=== PATIENT | male | born 1965 | race Two or more races ===

== ENCOUNTER 2019-07-17 13:04 | Inpatient (IN) | payer MEDICAID ==
[~2019-07-17] VITALS: Ht 172.7 cm; Wt 162.8 kg
[2019-07-17] MEDS ORDERED: methylPREDNISolone SOD SUCC 125 MG/2 ML VL IV ONE (13:45)
[2019-07-17] MEDS ORDERED: KETOROLAC TROMETH 30 MG/ML 1ML VIAL IV ONE (13:45)
[2019-07-17 14:33] LABS: Basophils # (auto) 0.1 uL; Basophils % (auto) 0.9 % (0.0-2.0); Eosinophils # (auto) 0.2 uL; Eosinophils % (auto) 1.9 % (0.0-7.0); Hematocrit 40.9 % (41.0-53.0); Hemoglobin 13.5 g/dL (13.5-17.5); Lymphocytes # (auto) 1.4 uL; Lymphocytes % (auto) 13.5 % (10.0-50.0); Mean Corpuscular Hemoglobin 28.4 pg (28.0-32.0); Mean Corpuscular Hgb Conc. 33.1 g/dL (32.0-36.0); Mean Corpuscular Volume 85.9 fL (80.0-100.0); Monocytes # (auto) 0.8 uL; Monocytes % (auto) 7.6 % (0.0-12.0); Neutrophils # (auto) 8.1 uL; Neutrophils % (auto) 76.1 % (37.0-80.0); Platelet Count (auto) 270 10^3/uL (140-450); Red Blood Cells 4.76 10^6/uL (4.5-5.90); Red Cell Distribution Width 18.2 % (11.8-14.3); White Blood Cell 10.7 10^3/uL (4.4-10.8)
[2019-07-17 14:58] LABS: Albumin 2.9 g/dL (3.4-5.0); Calcium 8.4 mg/dL (8.5-10.1); Magnesium 1.8 mg/dL (1.6-2.6); Potassium 3.6 mmol/L (3.5-5.1)
[2019-07-17 15:00] LABS: BUN/Creatinine Ratio 9.1; Uric Acid 11.9 mg/dL (3.5-7.2)
[2019-07-17 15:02] LABS: Bilirubin, Total 0.7 mg/dL (0.2-1.0); Total Protein 7.8 g/dL (6.4-8.2)
[2019-07-17] MEDS ORDERED: traMADol HCL 50 MG TAB PO PRN (16:30)
[2019-07-17] MEDS ORDERED: TEMAZEPAM 15 MG CAP PO PRN (16:30)
[2019-07-17] MEDS ORDERED: PROMETHAZINE HCL 25 MG/ML 1ML IV PRN (16:30)
[2019-07-17] MEDS ORDERED: DEXTROSE (50%) 50ML SYRG IV PRN (16:30)
[2019-07-17] MEDS ORDERED: NITROGLYCERIN 0.4 MG SL TAB SL PRN (17:00)
[2019-07-17] MEDS ORDERED: MORPHINE SULF INJ 2 MG/ML SYRINGE 1ML IV PRN (17:00)
[2019-07-17] MEDS: ACCU-CHEK COMFORT CURVE STRIP VI SCH ×2 (17:03→22:00)
[2019-07-17] MEDS: InsuLIN REG 1unit/0.01ml Soln (100units/ml) SC SCH ×2 (17:07→23:14)
[2019-07-17 20:55] VITALS: BP 129/76
--- NOTE | 2019-07-17 21:32 | NUR ---
OPENING NOTES RECEIVED FROM ED WITH NO SBAR HANDOFF REPORT. PT IS AWAKE AND ALERT AND ORIENTATED X 4 WITH NO S/S OF DISTRESS NOR PAIN. BED IS IN LOWEST POSITION WITH SIDE RAILS UP X 2. BED BRAKES ARE LOCKED AND CALL LIGHT IS WITH IN REACH. WILL CONTINUE TO MONITOR Q1 HR.
[2019-07-17 21:37] VITALS: BP 129/76
--- NOTE | 2019-07-17 21:49 | NUR ---
MED REC UNABLE TO OBTAIN ACCURATE MED REC.
[2019-07-17] MEDS: COLCHICINE 0.6 MG CAP PO SCH (23:08)
[2019-07-18 05:00] VITALS: BP 130/90
[2019-07-18] MEDS: InsuLIN REG 1unit/0.01ml Soln (100units/ml) SC SCH ×4 (06:25→21:20)
[2019-07-18] MEDS: ACCU-CHEK COMFORT CURVE STRIP VI SCH ×4 (06:25→21:20)
--- NOTE | 2019-07-18 07:30 | NUR ---
Opening Shift Note RECEIVED REPORT FROM NOC RN. Assumed care of patient, awake and alert. No S/S of distress/SOB or pain. BED IN LOWEST, LOCKED POSITION WITH SIDERAILS UP x2. Instructed on POC and to call for assist PRN, will continue to monitor for changes Q1hr and PRN.
--- NOTE | 2019-07-18 07:41 | NUR ---
closing notes endorsed care to day shift nurseConor.
[2019-07-18 08:15] VITALS: BP 131/86
[2019-07-18 09:00] VITALS: BP 131/86
[2019-07-18] MEDS: PANTOPRAZOLE 40 MG TAB PO SCH (10:02)
[2019-07-18] MEDS: COLCHICINE 0.6 MG CAP PO SCH ×2 (10:03→21:20)
[2019-07-18] MEDS: methylPREDNISolone SOD SUCC 40 MG/ML VL IV SCH (10:03)
[2019-07-18] MEDS ORDERED: LEVOTHYROXINE SODIUM 112 MCG TAB PO ONE (10:15)
[2019-07-18] MEDS: SOD CHL 0.45% 1,000 ML IV SCH ×2 (10:31→18:52)
[2019-07-18] MEDS ORDERED: ENOXAPARIN SOD 40 MG/0.4 ML SYRINGE SC ONE (11:30)
[2019-07-18 13:00] VITALS: BP 140/80
--- NOTE | 2019-07-18 15:02 | NUR ---
D/C Planning Per consult for homeless resources. Patient was provided information (a list of: names, numbers, and email to multiple agencies/facilities) related to the following social worker to assist patient if needed upon discharge: Government Agencies (to call 211 for assistance), food, health/hospital, homeless shelters, mental health services, laundry, thrift stores, gyms, churches, alcohol/substance abuse, senior citizen services, domestic violence, and legal services. Patient advised that upon discharge he/she will be provided with a sack lunch, clothes and transportation if needed. Pt stated he will be returning to his previous arrangement which is his car and friends. Pt advised he will call [facility] in [place], [place] [address], ) and will be put in the waiting list. Patient verbalized understanding.
--- NOTE | 2019-07-18 16:03 | NUR ---
assessment Patient is a 54 year old male who is alert and oriented. Per patient prior to admission he was homeless. Patient also informed me that he has a daily [facility] caregiver that helps him into the shower, helps with medication management, and cooking. I asked patient where he is getting showers and able to cook if he was homeless. Patient informed me he stays with his caregiver at times and sometimes he stays in his car. Patients PCP is Dr Kee. Sonali FREDERICK1 will be providing patient with resources and offer mcc. Patient verbalized understanding. Addendum: 07/18/19 at 1607 by Sue DICKSON Amended: Links added.
[2019-07-18 16:45] VITALS: BP 145/90
--- NOTE | 2019-07-18 20:00 | NUR ---
OPENING NOTE RECEIVED REPORT FROM DAYSHIFT RN AND ASSUMING ROLE OF CARE OF PATIENT AT THIS TIME. PATIENT SHOWING NO SIGN OF DISTRESS, SHORTNESS OF BREATH, AND PATIENT DENIES ANY PAIN AT THIS TIME. PATIENT EDUCATED ON PLAN OF CARE FOR THE NIGHT AND PATIENT VERBALIZED UNDERSTANDING. BED LOWERED, CALL LIGHT WITHIN REACH, AND PATIENT WILL BE ROUNDED ON EVERY HOUR AND NEEDED.
[2019-07-18 22:00] VITALS: BP 122/83
[2019-07-18] MEDS: ACETAMINOPHEN 500 MG TAB PO PRN (23:36)
[2019-07-19] MEDS: SOD CHL 0.45% 1,000 ML IV SCH ×3 (02:39→22:45)
[2019-07-19 05:00] VITALS: BP 157/100
[2019-07-19] MEDS: LEVOTHYROXINE SODIUM 112 MCG TAB PO SCH (06:19)
[2019-07-19] MEDS: ACCU-CHEK COMFORT CURVE STRIP VI SCH ×4 (06:19→22:00)
[2019-07-19] MEDS: InsuLIN REG 1unit/0.01ml Soln (100units/ml) SC SCH ×4 (06:19→22:46)
[2019-07-19 07:13] LABS: Basophils # (auto) 0 uL; Basophils % (auto) 0.2 % (0.0-2.0); Eosinophils # (auto) 0 uL; Hematocrit 36.6 % (41.0-53.0); Hemoglobin 12.2 g/dL (13.5-17.5); Lymphocytes # (auto) 1.3 uL; Lymphocytes % (auto) 14.3 % (10.0-50.0); Mean Corpuscular Hemoglobin 28.7 pg (28.0-32.0); Mean Corpuscular Hgb Conc. 33.4 g/dL (32.0-36.0); Monocytes # (auto) 0.5 uL; Monocytes % (auto) 6.2 % (0.0-12.0); Neutrophils % (auto) 79.3 % (37.0-80.0); Nucleated Red Blood Cells % 0.1 %; Platelet Count (auto) 271 10^3/uL (140-450); Red Blood Cells 4.25 10^6/uL (4.5-5.90); Red Cell Distribution Width 17.5 % (11.8-14.3); White Blood Cell 8.8 10^3/uL (4.4-10.8)
[2019-07-19 07:16] LABS: Potassium 4.3 mmol/L (3.5-5.1)
[2019-07-19 07:27] LABS: BUN/Creatinine Ratio 23.4; Calcium 8.1 mg/dL (8.5-10.1); Magnesium 2.4 mg/dL (1.6-2.6)
--- NOTE | 2019-07-19 07:40 | NUR ---
Opening Shift Note: Assumed care of patient, patient asleep in bed. No S/S of distress/SOB or pain. Side rails up x2, bed in lowest locked position, call light within reach. Will instruct patient on POC, will continue to monitor for changes Q1hr and PRN.
[2019-07-19 08:00] VITALS: BP 157/97
[2019-07-19] MEDS: PANTOPRAZOLE 40 MG TAB PO SCH (09:39)
[2019-07-19] MEDS: COLCHICINE 0.6 MG CAP PO SCH ×2 (09:39→22:33)
[2019-07-19] MEDS: ENOXAPARIN SOD 40 MG/0.4 ML SYRINGE SC SCH (09:39)
[2019-07-19] MEDS: methylPREDNISolone SOD SUCC 40 MG/ML VL IV SCH (09:39)
[2019-07-19 12:00] VITALS: BP 135/82
--- NOTE | 2019-07-19 14:05 | NUR ---
IV insertion IV access obtained, via clean sterile technique by inserting 20 gauge catheter at right hand after 1 attempt. IV secured properly. No trauma to site. Patient tolerated well.
--- NOTE | 2019-07-19 14:06 | NUR ---
IV removal IV DC'd with clean sterile technique, catheter fully intact. Pressure dressing applied to site. Patient tolerated well.
[2019-07-19] MEDS: ACETAMINOPHEN 500 MG TAB PO PRN (15:30)
--- NOTE | 2019-07-19 15:35 | NUR ---
SPOKE WITH PATIENT ABOUT POSSIBLE SLEEP APNEA. PATIENT RESTATED THAT HE REFUSED BiPAP AT NIGHT, AND IS SCHEDULED FOR AN OUTPATIENT SLEEP STUDY.
[2019-07-19 16:00] VITALS: BP 135/91
--- NOTE | 2019-07-19 19:45 | NUR ---
Opening Shift Note Assumed care of patient, patient sleeping snoring heavily, awakens to verbal stimuli. alert x4. No S/S of distress/SOB or pain. Instructed on POC and to call for assist PRN, will continue to monitor for changes Q1hr and PRN. Call light within reach
--- NOTE | 2019-07-19 20:47 | NUR ---
Rounds Patient awake and alert. No S/S of distress/SOB or pain. Urinal emptied. pale yellow urine. Instructed to call for assistance to get up for bm, last bm yesterday, patient ambulating using walker due to knee pain. Will continue to monitor changes q1hr and PRN. Call light within reach
[2019-07-19 21:52] VITALS: BP 127/90
[2019-07-20] MEDS: SOD CHL 0.45% 1,000 ML IV SCH ×2 (02:15→10:15)
[2019-07-20 04:54] VITALS: BP 130/68
[2019-07-20] MEDS: LEVOTHYROXINE SODIUM 112 MCG TAB PO SCH (06:19)
[2019-07-20] MEDS: ACCU-CHEK COMFORT CURVE STRIP VI SCH ×2 (06:26→11:30)
[2019-07-20] MEDS: InsuLIN REG 1unit/0.01ml Soln (100units/ml) SC SCH ×2 (06:43→12:02)
--- NOTE | 2019-07-20 07:25 | NUR ---
Opening Shift Note: Assumed care of patient, awake and alert. No S/S of distress/SOB or pain. Bed in lowest locked position, side rails up x 2, call light within reach. Instructed on POC and to call for assist PRN, will continue to monitor for changes Q1hr and PRN.
[2019-07-20 09:00] VITALS: BP 142/86
[2019-07-20] MEDS: PANTOPRAZOLE 40 MG TAB PO SCH (09:53)
[2019-07-20] MEDS: methylPREDNISolone SOD SUCC 40 MG/ML VL IV SCH (09:53)
[2019-07-20] MEDS: ENOXAPARIN SOD 40 MG/0.4 ML SYRINGE SC SCH (09:53)
[2019-07-20] MEDS: COLCHICINE 0.6 MG CAP PO SCH (09:53)
[2019-07-20 13:00] VITALS: BP 145/62
--- NOTE | 2019-07-20 14:15 | NUR ---
IV removal IV DC'd with clean sterile technique, catheter fully intact. Pressure dressing applied to site. Patient tolerated well.
--- NOTE | 2019-07-20 15:00 | NUR ---
Weekend or after hours discharge Please follow up with your primary care provider Dr. Kee. We are unable to schedule a follow up appointment at this time due to the office being closed for the weekend. Please call the office on Sunday morning to schedule a follow up appointment.
--- NOTE | 2019-07-20 15:01 | NUR ---
Discharge instructions given as ordered. Encourage to follow up with PMD as instructed. All questions and concerns addressed. Patient verbalized understanding. Medication reconciliation form completed and copy given to patient. IV removed with catheter intact, pressure dressing applied, rahman catheter removed. Telemetry unit returned to ICU. Patient taken to vehicle via wheelchair with all personal belongings, accompanied by staff and family member. No distress noted at time of departure.
== END 2019-07-20 17:02 | disposition home or self-care (01) | DRG 469 ==
LOC: ER 13:04 → TELE 13:05 → TELE-CENTR 21:05
PROVIDERS: ADMIT Internal Medicine; ATTEND Internal Medicine
DX: N17.0 Acute kidney failure with tubular necrosis (principal); E11.22 Type 2 diabetes mellitus with diabetic chronic kidney disease; M10.071 Idiopathic gout, right ankle and foot; E66.01 Morbid (severe) obesity due to excess calories; E03.9 Hypothyroidism, unspecified; I12.9 Hypertensive chronic kidney disease with stage 1 through stage 4 chronic kidney disease, or unspecified chronic kidney disease; N18.9 Chronic kidney disease, unspecified; M19.032 Primary osteoarthritis, left wrist; Z68.43 Body mass index [BMI] 50.0-59.9, adult; Z79.84 Long term (current) use of oral hypoglycemic drugs; Z85.46 Personal history of malignant neoplasm of prostate; Z79.899 Other long term (current) drug therapy
CPT/HCPCS: 36415; 71045; 80048; 80053; 82962; 83735; 83880; 84439; 84550; 85025; 85652; 87081; 93005; 93971; 94761; 96372; 96374; G0378; J1815; J1885

== ENCOUNTER 2020-01-14 10:13 | Inpatient (IN) | payer MEDICAID ==
[~2020-01-14] VITALS: Ht 175.3 cm; Wt 157.1 kg
[2020-01-14 10:47] LABS: Basophils # (auto) 0.1 10 ^3/uL (0-0.2); Basophils % (auto) 0.6 % (0.0-2.0); Eosinophils # (auto) 0 10 ^3/uL (0-0.8); Eosinophils % (auto) 0.3 % (0.0-7.0); Hematocrit 41.6 % (41.0-53.0); Hemoglobin 13.9 g/dL (13.5-17.5); Lymphocytes # (auto) 1.4 10 ^3/uL (0.4-5.4); Lymphocytes % (auto) 12.7 % (10.0-50.0); Mean Corpuscular Hgb Conc. 33.4 g/dL (32.0-36.0); Mean Corpuscular Volume 86.7 fL (80.0-100.0); Monocytes # (auto) 0.8 10 ^3/uL (0-1.3); Monocytes % (auto) 7.7 % (0.0-12.0); Neutrophils # (auto) 8.5 10 ^3/uL (1.6-8.6); Neutrophils % (auto) 78.7 % (37.0-80.0); Nucleated Red Blood Cells % 0.2 %; Platelet Count (auto) 295 10^3/uL (140-450); Red Blood Cells 4.79 10^6/uL (4.5-5.90); Red Cell Distribution Width 17.5 % (11.8-14.3); White Blood Cell 10.8 10^3/uL (4.4-10.8)
[2020-01-14 11:14] LABS: Alanine Aminotransferase 25 U/L (16-61); Albumin 3.2 g/dL (3.4-5.0); Alkaline Phosphatase 88 U/L (45-117); Anion Gap 7 (5-15); BUN/Creatinine Ratio 10.2; Bilirubin, Total 0.9 mg/dL (0.2-1.0); Blood Urea Nitrogen 12 mg/dL (7-18); Calcium 9.1 mg/dL (8.5-10.1); Carbon Dioxide 27 mmol/L (21-32); Chloride 99 mmol/L (98-107); GFR African American 83 mL/min; GFR Non-African American 69 mL/min; Glucose 131 mg/dL (74-106); Potassium 3.7 mmol/L (3.5-5.1); Sodium 133 mmol/L (136-145); Total Protein 9.4 g/dL (6.4-8.2)
[2020-01-14 11:24] LABS: Aspartate Aminotransferase 17 U/L (15-37)
[2020-01-14] MEDS ORDERED: PROMETHAZINE HCL 25 MG/ML 1ML IV ONE (12:00)
[2020-01-14] MEDS ORDERED: HYDROmorphone HCL 2 MG/ML VL IV ONE (12:00)
[2020-01-14] MEDS ORDERED: AZITHROMYCIN 500MG/ 250ML 250 ML IV ONE (12:00)
[2020-01-14] MEDS ORDERED: ALBUTEROL SULF 2.5 MG/0.5ML(0.5%) NEB SOLN NEB ONE (12:00)
[2020-01-14] MEDS ORDERED: IPRATROPIUM BROM 0.5 MG/2.5ML INH SOL NEB ONE (12:00)
[2020-01-14] MEDS ORDERED: NITROGLYCERIN 0.4 MG SL TAB SL PRN (18:45)
[2020-01-14] MEDS ORDERED: ACETAMINOPHEN 500 MG TAB PO PRN (18:45)
[2020-01-14] MEDS ORDERED: ONDANSETRON HCL 4 MG/2 ML VIAL IV PRN (18:45)
[2020-01-14] MEDS ORDERED: MORPHINE SULF INJ 2 MG/ML SYRINGE 1ML IV PRN (18:45)
[2020-01-14] MEDS ORDERED: IPRATROPIUM BROM 0.5 MG/2.5ML INH SOL NEB PRN ×2 (18:45)
[2020-01-14 18:55] VITALS: BP 150/81
[2020-01-14 22:00] VITALS: BP 145/96
[2020-01-15 05:00] VITALS: BP 139/93
[2020-01-15 05:45] LABS: Basophils # (auto) 0.1 10 ^3/uL (0-0.2); Eosinophils # (auto) 0 10 ^3/uL (0-0.8); Eosinophils % (auto) 0.1 % (0.0-7.0); Hematocrit 40.3 % (41.0-53.0); Hemoglobin 13.7 g/dL (13.5-17.5); Lymphocytes # (auto) 1.2 10 ^3/uL (0.4-5.4); Lymphocytes % (auto) 11.4 % (10.0-50.0); Mean Corpuscular Hemoglobin 29.3 pg (28.0-32.0); Mean Corpuscular Hgb Conc. 33.9 g/dL (32.0-36.0); Mean Corpuscular Volume 86.5 fL (80.0-100.0); Monocytes # (auto) 0.8 10 ^3/uL (0-1.3); Monocytes % (auto) 7.3 % (0.0-12.0); Neutrophils # (auto) 8.6 10 ^3/uL (1.6-8.6); Neutrophils % (auto) 80.2 % (37.0-80.0); Platelet Count (auto) 261 10^3/uL (140-450); Red Blood Cells 4.66 10^6/uL (4.5-5.90); Red Cell Distribution Width 17.3 % (11.8-14.3); White Blood Cell 10.8 10^3/uL (4.4-10.8)
[2020-01-15 06:00] LABS: Calcium 8.7 mg/dL (8.5-10.1); Potassium 3.7 mmol/L (3.5-5.1)
[2020-01-15 06:05] LABS: BUN/Creatinine Ratio 12.3
[2020-01-15] MEDS: IPRATROPIUM BROM 0.5 MG/2.5ML INH SOL NEB SCH ×3 (06:19→18:28)
[2020-01-15] MEDS: ALBUTEROL SULF 2.5 MG/0.5ML(0.5%) NEB SOLN NEB SCH ×3 (06:19→18:28)
[2020-01-15 08:56] VITALS: BP 145/100
[2020-01-15] MEDS: FAMOTIDINE 20 MG TAB PO SCH (10:13)
[2020-01-15] MEDS: cefTRIAXone 1GM/50ML D5W 50 ML IV SCH (10:17)
[2020-01-15] MEDS ORDERED: ALLOPURINOL 300 MG TAB PO ONE (11:00)
[2020-01-15] MEDS ORDERED: POTASSIUM CHL 20 Meq TABLET PO ONE (11:00)
[2020-01-15] MEDS ORDERED: FUROSEMIDE 20 MG/2 ML VIAL IV ONE (11:00)
[2020-01-15] MEDS ORDERED: ENOXAPARIN SOD 40 MG/0.4 ML SYRINGE SC ONE (11:15)
[2020-01-15] MEDS: AZITHROMYCIN 500MG/ 250ML 250 ML IV SCH (11:53)
[2020-01-15 13:00] VITALS: BP 157/92
[2020-01-15 13:24] LABS: Urine Bacteria NONE SEEN /hpf (None Seen); Urine Blood TRACE /uL (Negative); Urine Mucus FEW (None Seen); Urine Specific Gravity 1.016 (1.001-1.035); Urine WBC 1 /hpf (0 - 3)
[2020-01-15] MEDS ORDERED: OPTISON 3ml Vial for INJ IV ONE (16:04)
[2020-01-15 17:00] VITALS: BP 111/87
[2020-01-15] MEDS: HYDROcodone-ACET 5/325MG TAB PO PRN (18:33)
[2020-01-15 22:00] VITALS: BP 121/84
[2020-01-15] MEDS: MORPHINE SULF INJ 2 MG/ML SYRINGE 1ML IV PRN (22:23)
[2020-01-16] MEDS: MORPHINE SULF INJ 2 MG/ML SYRINGE 1ML IV PRN ×3 (03:22→20:31)
[2020-01-16 05:00] VITALS: BP 150/87
[2020-01-16] MEDS: IPRATROPIUM BROM 0.5 MG/2.5ML INH SOL NEB SCH ×3 (06:00→18:19)
[2020-01-16] MEDS: ALBUTEROL SULF 2.5 MG/0.5ML(0.5%) NEB SOLN NEB SCH ×3 (06:00→18:19)
[2020-01-16 06:24] LABS: Calcium 8.7 mg/dL (8.5-10.1); Potassium 3.9 mmol/L (3.5-5.1)
[2020-01-16 06:25] LABS: BUN/Creatinine Ratio 11.9
[2020-01-16 09:00] VITALS: BP 136/79
[2020-01-16] MEDS: ALLOPURINOL 300 MG TAB PO SCH (09:37)
[2020-01-16] MEDS: cefTRIAXone 1GM/50ML D5W 50 ML IV SCH (09:37)
[2020-01-16] MEDS: FAMOTIDINE 20 MG TAB PO SCH (09:38)
[2020-01-16] MEDS: ENOXAPARIN SOD 40 MG/0.4 ML SYRINGE SC SCH (09:39)
[2020-01-16] MEDS: HYDROcodone-ACET 5/325MG TAB PO PRN (09:39)
[2020-01-16] MEDS ORDERED: POTASSIUM CHL 20 Meq TABLET PO SCH (10:00)
[2020-01-16] MEDS ORDERED: FUROSEMIDE 20 MG/2 ML VIAL IV SCH (10:00)
[2020-01-16] MEDS ORDERED: LEVOTHYROXINE SODIUM 112 MCG TAB PO ONE (10:45)
[2020-01-16] MEDS: AZITHROMYCIN 500MG/ 250ML 250 ML IV SCH (12:22)
[2020-01-16 13:00] VITALS: BP 129/81
[2020-01-16 16:54] VITALS: BP 155/83
[2020-01-16 22:00] VITALS: BP 134/78
[2020-01-17] VITALS (8 sets, daily range): BP systolic 114–156; BP diastolic 64–100
[2020-01-17] MEDS: MORPHINE SULF INJ 2 MG/ML SYRINGE 1ML IV PRN ×5 (01:56→22:16)
[2020-01-17] MEDS: IPRATROPIUM BROM 0.5 MG/2.5ML INH SOL NEB SCH ×3 (05:58→19:29)
[2020-01-17] MEDS: ALBUTEROL SULF 2.5 MG/0.5ML(0.5%) NEB SOLN NEB SCH ×3 (05:58→19:29)
[2020-01-17 06:33] LABS: Calcium 8.8 mg/dL (8.5-10.1); Potassium 3.5 mmol/L (3.5-5.1)
[2020-01-17 06:36] LABS: BUN/Creatinine Ratio 14.3
[2020-01-17] MEDS: LEVOTHYROXINE SODIUM 112 MCG TAB PO SCH (06:42)
[2020-01-17] MEDS: ALLOPURINOL 300 MG TAB PO SCH (09:22)
[2020-01-17] MEDS: ENOXAPARIN SOD 40 MG/0.4 ML SYRINGE SC SCH (09:22)
[2020-01-17] MEDS: FAMOTIDINE 20 MG TAB PO SCH (09:22)
[2020-01-17] MEDS: cefTRIAXone 1GM/50ML D5W 50 ML IV SCH (09:22)
[2020-01-17] MEDS: AZITHROMYCIN 500MG/ 250ML 250 ML IV SCH (11:00)
[2020-01-17] MEDS: methylPREDNISolone SOD SUCC 125 MG/2 ML VL IV SCH ×2 (12:20→22:14)
[2020-01-17] MEDS ORDERED: ACETYLCYSTEINE 20%(200MG/ML) SOL 4ML NEB SCH (14:00)
[2020-01-17] MEDS: ACETYLCYSTEINE 20%(200MG/ML) SOL 4ML NEB SCH (19:29)
[2020-01-17] MEDS: HYDROcodone-ACET 7.5/325MG TAB PO PRN (20:06)
[2020-01-17] MEDS: ENOXAPARIN SOD 150 MG/1 ML SYRINGE SC SCH (22:14)
[2020-01-18 01:59] VITALS: BP 127/82
[2020-01-18 04:37] VITALS: BP 139/90
[2020-01-18] MEDS: LEVOTHYROXINE SODIUM 112 MCG TAB PO SCH (07:03)
[2020-01-18] MEDS: ALBUTEROL SULF 2.5 MG/0.5ML(0.5%) NEB SOLN NEB SCH ×3 (07:11→18:15)
[2020-01-18] MEDS: ACETYLCYSTEINE 20%(200MG/ML) SOL 4ML NEB SCH ×4 (07:11→18:15)
[2020-01-18] MEDS: IPRATROPIUM BROM 0.5 MG/2.5ML INH SOL NEB SCH ×3 (07:11→18:15)
[2020-01-18 07:22] LABS: Basophils # (auto) 0 10 ^3/uL (0-0.2); Basophils % (auto) 0.4 % (0.0-2.0); Eosinophils # (auto) 0 10 ^3/uL (0-0.8); Hematocrit 38.9 % (41.0-53.0); Hemoglobin 12.8 g/dL (13.5-17.5); Lymphocytes # (auto) 0.7 10 ^3/uL (0.4-5.4); Mean Corpuscular Hemoglobin 28.7 pg (28.0-32.0); Mean Corpuscular Volume 86.9 fL (80.0-100.0); Monocytes # (auto) 0.3 10 ^3/uL (0-1.3); Monocytes % (auto) 2.9 % (0.0-12.0); Neutrophils # (auto) 10.1 10 ^3/uL (1.6-8.6); Neutrophils % (auto) 90.7 % (37.0-80.0); Platelet Count (auto) 317 10^3/uL (140-450); Red Blood Cells 4.48 10^6/uL (4.5-5.90); Red Cell Distribution Width 17.1 % (11.8-14.3); White Blood Cell 11.2 10^3/uL (4.4-10.8)
[2020-01-18 07:31] LABS: INR 1.23 (0.9-1.15); Partial Thromboplastin Time 35.2 sec (23.64-32.05)
[2020-01-18 07:35] LABS: Albumin 2.1 g/dL (3.4-5.0); Calcium 9.1 mg/dL (8.5-10.1); Potassium 4.3 mmol/L (3.5-5.1)
[2020-01-18 07:38] LABS: BUN/Creatinine Ratio 22.5; Bilirubin, Total 0.4 mg/dL (0.2-1.0); Total Protein 9.3 g/dL (6.4-8.2)
[2020-01-18] MEDS: ALLOPURINOL 300 MG TAB PO SCH (08:50)
[2020-01-18] MEDS: cefTRIAXone 1GM/50ML D5W 50 ML IV SCH (08:50)
[2020-01-18] MEDS: ENOXAPARIN SOD 150 MG/1 ML SYRINGE SC SCH ×2 (08:50→21:46)
[2020-01-18] MEDS: FAMOTIDINE 20 MG TAB PO SCH (08:50)
[2020-01-18] MEDS: methylPREDNISolone SOD SUCC 125 MG/2 ML VL IV SCH ×2 (08:51→21:46)
[2020-01-18] MEDS: MORPHINE SULF INJ 2 MG/ML SYRINGE 1ML IV PRN ×2 (08:51→20:37)
[2020-01-18 09:58] VITALS: BP_SYST 107; BP_SYST 138; BP_DIAS 56; BP_DIAS 82
[2020-01-18] MEDS: AZITHROMYCIN 500MG/ 250ML 250 ML IV SCH (10:38)
[2020-01-18] MEDS ORDERED: COLCHICINE 0.6 MG CAP PO ONE (10:45)
[2020-01-18 13:00] VITALS: BP 121/66
[2020-01-18 16:26] VITALS: BP 128/72
[2020-01-18 22:00] VITALS: BP 138/80
[2020-01-19] MEDS: IPRATROPIUM BROM 0.5 MG/2.5ML INH SOL NEB SCH ×4 (00:49→18:26)
[2020-01-19] MEDS: ALBUTEROL SULF 2.5 MG/0.5ML(0.5%) NEB SOLN NEB SCH ×4 (00:49→18:26)
[2020-01-19] MEDS: ACETYLCYSTEINE 20%(200MG/ML) SOL 4ML NEB SCH ×2 (00:49→07:07)
[2020-01-19] MEDS: MORPHINE SULF INJ 2 MG/ML SYRINGE 1ML IV PRN ×4 (02:12→20:21)
[2020-01-19] MEDS: HYDROcodone-ACET 7.5/325MG TAB PO PRN ×2 (04:08→16:12)
[2020-01-19 05:00] VITALS: BP 119/80
[2020-01-19 06:08] LABS: Hematocrit 36.3 % (41.0-53.0); Hemoglobin 12.3 g/dL (13.5-17.5); Mean Corpuscular Hemoglobin 29.5 pg (28.0-32.0); Mean Corpuscular Hgb Conc. 33.8 g/dL (32.0-36.0); Mean Corpuscular Volume 87.1 fL (80.0-100.0); Platelet Count (auto) 323 10^3/uL (140-450); Red Blood Cells 4.16 10^6/uL (4.5-5.90); Red Cell Distribution Width 17.3 % (11.8-14.3); White Blood Cell 9.8 10^3/uL (4.4-10.8)
[2020-01-19 06:13] LABS: Band Neutrophils % (manual) 0; Basophils % (manual) 0 (0.0-2.0); Blast Cells 0; Eosinophils % (manual) 0 (0-7); Metamyelocytes % 0; Myelocytes % 0; Promyelocytes % 0; Reactive Lymphocytes 0
[2020-01-19] MEDS: LEVOTHYROXINE SODIUM 112 MCG TAB PO SCH (06:36)
[2020-01-19 06:56] LABS: Hepatitis B Surface Antibody Negative
[2020-01-19 07:26] LABS: Hepatitis A Total Antibody Negative
[2020-01-19 07:27] LABS: Lymphocytes % (manual) 12 (10.0-50.0); Monocytes % (manual) 2 (0-12)
[2020-01-19 09:00] VITALS: BP 111/84
[2020-01-19] MEDS: cefTRIAXone 1GM/50ML D5W 50 ML IV SCH (10:01)
[2020-01-19] MEDS: methylPREDNISolone SOD SUCC 125 MG/2 ML VL IV SCH (10:02)
[2020-01-19] MEDS: FAMOTIDINE 20 MG TAB PO SCH (10:02)
[2020-01-19] MEDS: COLCHICINE 0.6 MG CAP PO SCH (10:02)
[2020-01-19] MEDS: ALLOPURINOL 300 MG TAB PO SCH (10:02)
[2020-01-19] MEDS: AZITHROMYCIN 500MG/ 250ML 250 ML IV SCH (10:02)
[2020-01-19] MEDS: ENOXAPARIN SOD 150 MG/1 ML SYRINGE SC SCH ×2 (10:02→23:35)
[2020-01-19 10:42] LABS: Hepatitis B Core Total AB Negative; Hepatitis C Antibody Negative (Negative)
[2020-01-19 13:00] VITALS: BP 110/71
[2020-01-19 16:37] VITALS: BP 129/82
[2020-01-19 22:00] VITALS: BP 134/76
[2020-01-19] MEDS: CIPROFLOXACIN 0.3%OPTH(EYE) SOL 5ML EACHEYE SCH (22:00)
[2020-01-19] MEDS ORDERED: KETOROLAC TROMETH 15 mg/ml 1ML VL IV ONE (22:00)
[2020-01-20] MEDS ORDERED: TEMAZEPAM 15 MG CAP PO ONE
[2020-01-20 05:00] VITALS: BP 147/93
[2020-01-20] MEDS: MORPHINE SULF INJ 2 MG/ML SYRINGE 1ML IV PRN ×3 (05:29→20:47)
[2020-01-20] MEDS: CIPROFLOXACIN 0.3%OPTH(EYE) SOL 5ML EACHEYE SCH ×3 (05:31→22:25)
[2020-01-20] MEDS: ALBUTEROL SULF 2.5 MG/0.5ML(0.5%) NEB SOLN NEB SCH ×3 (06:20→18:38)
[2020-01-20] MEDS: IPRATROPIUM BROM 0.5 MG/2.5ML INH SOL NEB SCH ×3 (06:20→18:38)
[2020-01-20] MEDS: LEVOTHYROXINE SODIUM 112 MCG TAB PO SCH (06:41)
[2020-01-20 06:59] LABS: Hepatitis B Surface Antigen Negative (Negative)
[2020-01-20] MEDS: cefTRIAXone 1GM/50ML D5W 50 ML IV SCH (08:59)
[2020-01-20 09:00] VITALS: BP 148/80
[2020-01-20] MEDS: COLCHICINE 0.6 MG CAP PO SCH (09:45)
[2020-01-20] MEDS: AZITHROMYCIN 250 MG TAB PO SCH (09:45)
[2020-01-20] MEDS: predniSONE 20 MG TAB PO SCH (09:45)
[2020-01-20] MEDS: FAMOTIDINE 20 MG TAB PO SCH (09:46)
[2020-01-20] MEDS: ENOXAPARIN SOD 150 MG/1 ML SYRINGE SC SCH (09:47)
[2020-01-20 13:00] VITALS: BP 127/98
[2020-01-20 16:44] VITALS: BP 145/92
[2020-01-20 22:00] VITALS: BP 105/55
[2020-01-20] MEDS: HYDROcodone-ACET 7.5/325MG TAB PO PRN (22:50)
[2020-01-21] VITALS (7 sets, daily range): BP systolic 122–146; BP diastolic 65–74
[2020-01-21] MEDS: MORPHINE SULF INJ 2 MG/ML SYRINGE 1ML IV PRN ×2 (05:33→21:52)
[2020-01-21] MEDS: CIPROFLOXACIN 0.3%OPTH(EYE) SOL 5ML EACHEYE SCH ×4 (05:33→21:51)
[2020-01-21] MEDS: LEVOTHYROXINE SODIUM 112 MCG TAB PO SCH (06:45)
[2020-01-21] MEDS: ALBUTEROL SULF 2.5 MG/0.5ML(0.5%) NEB SOLN NEB SCH ×3 (06:55→19:28)
[2020-01-21] MEDS: IPRATROPIUM BROM 0.5 MG/2.5ML INH SOL NEB SCH ×3 (06:55→19:29)
[2020-01-21] MEDS: cefTRIAXone 1GM/50ML D5W 50 ML IV SCH (09:54)
[2020-01-21] MEDS: ASPirin 81 mg TAB PO SCH (09:55)
[2020-01-21] MEDS: COLCHICINE 0.6 MG CAP PO SCH ×2 (09:56→21:51)
[2020-01-21] MEDS: predniSONE 20 MG TAB PO SCH (09:56)
[2020-01-21] MEDS: FAMOTIDINE 20 MG TAB PO SCH (09:56)
[2020-01-21] MEDS: AZITHROMYCIN 250 MG TAB PO SCH (09:56)
[2020-01-21] MEDS ORDERED: KETOROLAC TROMETH 15 mg/ml 1ML VL IV ONE (10:15)
[2020-01-21] MEDS ORDERED: methylPREDNISolone SOD SUCC 125 MG/2 ML VL IV ONE (10:15)
[2020-01-22] VITALS (7 sets, daily range): BP systolic 60–123; BP diastolic 57–73
[2020-01-22] MEDS: IPRATROPIUM BROM 0.5 MG/2.5ML INH SOL NEB SCH ×3 (06:01→18:54)
[2020-01-22] MEDS: ALBUTEROL SULF 2.5 MG/0.5ML(0.5%) NEB SOLN NEB SCH ×3 (06:01→18:53)
[2020-01-22] MEDS: LEVOTHYROXINE SODIUM 112 MCG TAB PO SCH (06:19)
[2020-01-22] MEDS: CIPROFLOXACIN 0.3%OPTH(EYE) SOL 5ML EACHEYE SCH ×4 (06:19→21:51)
[2020-01-22] MEDS: cefTRIAXone 1GM/50ML D5W 50 ML IV SCH (09:10)
[2020-01-22] MEDS: COLCHICINE 0.6 MG CAP PO SCH (09:11)
[2020-01-22] MEDS: predniSONE 20 MG TAB PO SCH (09:11)
[2020-01-22] MEDS: AZITHROMYCIN 250 MG TAB PO SCH (09:11)
[2020-01-22] MEDS: ASPirin 81 mg TAB PO SCH (09:11)
[2020-01-22] MEDS: FAMOTIDINE 20 MG TAB PO SCH (09:12)
[2020-01-22] MEDS ORDERED: ALLOPURINOL 300 MG TAB PO ONE (11:15)
[2020-01-22] MEDS ORDERED: KETOROLAC TROMETH 15 mg/ml 1ML VL IV ONE (11:30)
[2020-01-22] MEDS: HYDROcodone-ACET 7.5/325MG TAB PO PRN (21:53)
[2020-01-23 05:23] LABS: Hematocrit 43.1 % (41.0-53.0); Hemoglobin 14.2 g/dL (13.5-17.5); Mean Corpuscular Volume 87.8 fL (80.0-100.0); Platelet Count (auto) 315 10^3/uL (140-450); Red Blood Cells 4.91 10^6/uL (4.5-5.90); White Blood Cell 8.8 10^3/uL (4.4-10.8)
[2020-01-23 05:36] LABS: Basophils % (manual) 0 (0.0-2.0); Blast Cells 0; Eosinophils % (manual) 0 (0-7); Myelocytes % 0; Promyelocytes % 0; Reactive Lymphocytes 0
[2020-01-23 05:44] VITALS: BP 122/63
[2020-01-23 05:44] LABS: Potassium 4.3 mmol/L (3.5-5.1)
[2020-01-23 05:49] LABS: BUN/Creatinine Ratio 40.7; Calcium 7.7 mg/dL (8.5-10.1)
[2020-01-23] MEDS: IPRATROPIUM BROM 0.5 MG/2.5ML INH SOL NEB SCH ×3 (06:14→18:14)
[2020-01-23] MEDS: ALBUTEROL SULF 2.5 MG/0.5ML(0.5%) NEB SOLN NEB SCH ×3 (06:14→18:14)
[2020-01-23] MEDS: LEVOTHYROXINE SODIUM 112 MCG TAB PO SCH (06:30)
[2020-01-23] MEDS: CIPROFLOXACIN 0.3%OPTH(EYE) SOL 5ML EACHEYE SCH ×4 (06:30→21:27)
[2020-01-23 07:16] LABS: Band Neutrophils % (manual) 2; Lymphocytes % (manual) 14 (10.0-50.0); Metamyelocytes % 2; Monocytes % (manual) 8 (0-12)
[2020-01-23 09:00] VITALS: BP 162/79
[2020-01-23] MEDS ORDERED: ALLOPURINOL 300 MG TAB PO SCH (10:00)
[2020-01-23] MEDS: predniSONE 20 MG TAB PO SCH (10:13)
[2020-01-23] MEDS: FLORASTOR (S. BOULARDII) 250 MG CAP PO SCH (10:13)
[2020-01-23] MEDS: FAMOTIDINE 20 MG TAB PO SCH (10:13)
[2020-01-23] MEDS: ASPirin 81 mg TAB PO SCH (10:13)
[2020-01-23] MEDS: AZITHROMYCIN 250 MG TAB PO SCH (10:13)
[2020-01-23] MEDS: HYDROcodone-ACET 7.5/325MG TAB PO PRN ×2 (10:14→21:43)
[2020-01-23] MEDS ORDERED: LEVOTHYROXINE SODIUM 100 MCG/5 ML INJ IV ONE (11:30)
[2020-01-23] MEDS ORDERED: SODIUM CHLORIDE 0.9% 1,000 ML IV ONE (11:30)
[2020-01-23 13:00] VITALS: BP 150/76
[2020-01-23 17:00] VITALS: BP 162/104
[2020-01-23 22:00] VITALS: BP 127/72
[2020-01-24 05:04] VITALS: BP 131/76
[2020-01-24] MEDS: CIPROFLOXACIN 0.3%OPTH(EYE) SOL 5ML EACHEYE SCH ×2 (05:55→12:00)
[2020-01-24] MEDS: ALBUTEROL SULF 2.5 MG/0.5ML(0.5%) NEB SOLN NEB SCH ×2 (06:18→11:29)
[2020-01-24] MEDS: IPRATROPIUM BROM 0.5 MG/2.5ML INH SOL NEB SCH ×2 (06:18→11:29)
[2020-01-24 07:33] LABS: Calcium 7.8 mg/dL (8.5-10.1); Potassium 3.9 mmol/L (3.5-5.1)
[2020-01-24 07:35] LABS: BUN/Creatinine Ratio 32.7
[2020-01-24 09:00] VITALS: BP 121/64
[2020-01-24] MEDS ORDERED: predniSONE 20 MG TAB PO ONE (10:00)
[2020-01-24] MEDS ORDERED: LEVOTHYROXINE SODIUM 100 MCG/5 ML INJ IV SCH (10:00)
[2020-01-24] MEDS: ASPirin 81 mg TAB PO SCH (10:04)
[2020-01-24] MEDS: FLORASTOR (S. BOULARDII) 250 MG CAP PO SCH (10:04)
[2020-01-24] MEDS: FAMOTIDINE 20 MG TAB PO SCH (10:04)
[2020-01-24] MEDS: AZITHROMYCIN 250 MG TAB PO SCH (10:05)
[2020-01-24] MEDS: HYDROcodone-ACET 7.5/325MG TAB PO PRN (10:09)
[2020-01-24 12:48] VITALS: BP 121/71
[2020-01-24 13:29] VITALS: BP 121/71
[2020-01-24 14:25] VITALS: BP 121/71
[2020-01-25] MEDS ORDERED: predniSONE 20 MG TAB PO ONE (10:00)
[2020-01-26] MEDS ORDERED: predniSONE 5 MG TAB PO ONE (10:00)
[2020-01-27] MEDS ORDERED: predniSONE 5 MG TAB PO ONE (10:00)
== END 2020-01-24 15:35 | disposition home or self-care (01) | DRG 133 ==
LOC: EDBD 10:13 → ER 10:13 → OVERFLOW 10:14 → CENTRAL 20:11
PROVIDERS: ADMIT Nurse Practitioner Acute Care; ATTEND Internal Medicine
PROC: 5A09357 Assistance with Respiratory Ventilation, Less than 24 Consecutive Hours, Continuous Positive Airway Pressure (ICD-10-PCS; principal; 2020-01-19)
DX: J96.00 Acute respiratory failure, unspecified whether with hypoxia or hypercapnia (principal); N17.0 Acute kidney failure with tubular necrosis; I50.41 Acute combined systolic (congestive) and diastolic (congestive) heart failure; J18.9 Pneumonia, unspecified organism; I13.0 Hypertensive heart and chronic kidney disease with heart failure and stage 1 through stage 4 chronic kidney disease, or unspecified chronic kidney disease; E86.0 Dehydration; I15.2 Hypertension secondary to endocrine disorders; E66.01 Morbid (severe) obesity due to excess calories; G47.33 Obstructive sleep apnea (adult) (pediatric); G89.29 Other chronic pain; R73.9 Hyperglycemia, unspecified; E03.9 Hypothyroidism, unspecified; M10.041 Idiopathic gout, right hand; N18.9 Chronic kidney disease, unspecified; E44.1 Mild protein-calorie malnutrition; F32.9 Major depressive disorder, single episode, unspecified; J44.0 Chronic obstructive pulmonary disease with (acute) lower respiratory infection; Z79.82 Long term (current) use of aspirin; Z91.14 Patient's other noncompliance with medication regimen; Z91.19 Patient's noncompliance with other medical treatment and regimen; Z79.899 Other long term (current) drug therapy; Z68.43 Body mass index [BMI] 50.0-59.9, adult; S63.104A Unspecified dislocation of right thumb, initial encounter; X58.XXXA Exposure to other specified factors, initial encounter; Y93.89 Activity, other specified; Y92.89 Other specified places as the place of occurrence of the external cause; Y99.8 Other external cause status
CPT/HCPCS: 36415; 36600; 70490; 71045; 73100; 73110; 73120; 80048; 80053; 80061; 81001; 82805; 83036; 83735; 83880; 84439; 84443; 84484; 84550; 85007; 85025; 85027; 85379; 85610; 85730; 86703; 86704; 86706; 86708; 86803; 87340; 87493; 87804; 93005; 93306; 93970; 94640; 94660; 96365; 96366; 96375; 97110; 97163; 97530; G0378; J0696; J2405; J3490; Q9956

== ENCOUNTER 2021-12-13 16:24 | Inpatient (IN) | payer MEDICAID ==
[~2021-12-13] VITALS: Ht 172.7 cm; Wt 147.0 kg
[2021-12-13 18:25] LABS: Basophils # (auto) 0.1 10 ^3/uL (0-0.2); Basophils % (auto) 1.3 % (0.0-2.0); Eosinophils # (auto) 0.2 10 ^3/uL (0-0.8); Eosinophils % (auto) 2.3 % (0.0-7.0); Hematocrit 42.5 % (41.0-53.0); Hemoglobin 14.3 g/dL (13.5-17.5); Mean Corpuscular Hemoglobin 28.8 pg (28.0-32.0); Mean Corpuscular Hgb Conc. 33.7 g/dL (32.0-36.0); Mean Corpuscular Volume 85.4 fL (80.0-100.0); Monocytes # (auto) 0.6 10 ^3/uL (0-1.3); Monocytes % (auto) 5.9 % (0.0-12.0); Neutrophils # (auto) 6.7 10 ^3/uL (1.6-8.6); Neutrophils % (auto) 69.5 % (37.0-80.0); Nucleated Red Blood Cells % 0.2 %; Red Blood Cells 4.97 10^6/uL (4.5-5.90); White Blood Cell 9.7 10^3/uL (4.4-10.8)
[2021-12-13 18:43] LABS: Albumin 3.6 g/dL (3.4-5.0)
[2021-12-13 18:50] LABS: BUN/Creatinine Ratio 10.4; Bilirubin, Total 0.4 mg/dL (0.2-1.0); Total Protein 9.2 g/dL (6.4-8.2)
[2021-12-13] MEDS ORDERED: HYDROcodone-ACET 5/325MG TAB PO ONE (20:45)
[2021-12-13] MEDS ORDERED: ACETAMINOPHEN 325 MG TAB PO PRN (22:15)
[2021-12-13] MEDS ORDERED: ATORVASTATIN 20 MG TAB PO ONE (22:15)
[2021-12-13] MEDS ORDERED: cloNIDine HCL 0.1 MG TAB PO PRN (22:15)
[2021-12-13] MEDS ORDERED: ONDANSETRON HCL 4 MG/2 ML VIAL IV PRN (22:15)
[2021-12-14] VITALS (8 sets, daily range): BP systolic 112–151; BP diastolic 69–101
[2021-12-14] MEDS: HYDROcodone-ACET 5/325MG TAB PO PRN ×4 (01:09→21:09)
[2021-12-14] MEDS: TEMAZEPAM 15 MG CAP PO PRN (01:09)
[2021-12-14] MEDS ORDERED: INDO50CA82 PO (01:39)
[2021-12-14] MEDS ORDERED: HYDR-4902 PO (01:39)
[2021-12-14] MEDS: GABAPENTIN 300 MG CAP PO SCH ×3 (06:36→22:00)
[2021-12-14 07:32] LABS: Basophils # (auto) 0.1 10 ^3/uL (0-0.2); Basophils % (auto) 0.7 % (0.0-2.0); Eosinophils # (auto) 0.3 10 ^3/uL (0-0.8); Eosinophils % (auto) 3.7 % (0.0-7.0); Hematocrit 37.6 % (41.0-53.0); Hemoglobin 12.5 g/dL (13.5-17.5); Lymphocytes # (auto) 1.9 10 ^3/uL (0.4-5.4); Lymphocytes % (auto) 27.9 % (10.0-50.0); Mean Corpuscular Hemoglobin 28.7 pg (28.0-32.0); Mean Corpuscular Hgb Conc. 33.2 g/dL (32.0-36.0); Mean Corpuscular Volume 86.3 fL (80.0-100.0); Monocytes # (auto) 0.6 10 ^3/uL (0-1.3); Monocytes % (auto) 8.6 % (0.0-12.0); Neutrophils # (auto) 4.1 10 ^3/uL (1.6-8.6); Neutrophils % (auto) 59.1 % (37.0-80.0); Nucleated Red Blood Cells % 0.1 %; Red Blood Cells 4.35 10^6/uL (4.5-5.90); Red Cell Distribution Width 16.1 % (11.8-14.3); White Blood Cell 6.9 10^3/uL (4.4-10.8)
[2021-12-14 07:41] LABS: Potassium 3.7 mmol/L (3.5-5.1)
[2021-12-14 07:45] LABS: BUN/Creatinine Ratio 12.4; Calcium 8.7 mg/dL (8.5-10.1)
[2021-12-14] MEDS: LISINOPRIL 10 MG TAB PO SCH (09:46)
[2021-12-14] MEDS: PANTOPRAZOLE 40 MG TAB PO SCH (09:47)
[2021-12-14] MEDS: ASPirin 81 mg TAB PO SCH (09:47)
[2021-12-14] MEDS: ENOXAPARIN SOD 40 MG/0.4 ML SYRINGE SC SCH (09:47)
[2021-12-14] MEDS: KETOROLAC TROMETH 30 MG/ML 1ML VIAL IV PRN (17:14)
[2021-12-14] MEDS: ATORVASTATIN 20 MG TAB PO SCH (22:00)
[2021-12-15] MEDS: KETOROLAC TROMETH 30 MG/ML 1ML VIAL IV PRN ×3 (04:11→22:25)
[2021-12-15 05:00] VITALS: BP 89/48
[2021-12-15] MEDS: GABAPENTIN 300 MG CAP PO SCH ×3 (06:07→22:25)
[2021-12-15 06:48] LABS: Urine Bacteria NONE SEEN /hpf (None Seen); Urine Blood Negative /uL (Negative); Urine Specific Gravity 1.026 (1.001-1.035); Urine WBC 1 /hpf (0 - 3)
[2021-12-15 09:00] VITALS: BP 96/70
[2021-12-15] MEDS: ASPirin 81 mg TAB PO SCH (10:02)
[2021-12-15] MEDS: PANTOPRAZOLE 40 MG TAB PO SCH (10:03)
[2021-12-15] MEDS: LISINOPRIL 10 MG TAB PO SCH (10:04)
[2021-12-15] MEDS: ENOXAPARIN SOD 40 MG/0.4 ML SYRINGE SC SCH (10:22)
[2021-12-15 10:49] LABS: Amphetamine Screen, Urine NEGATIVE (NEGATIVE); Barbiturate Scree,Urine NEGATIVE (NEGATIVE); Benzodiazephine Screen, Urine NEGATIVE (NEGATIVE); Cocaine Screen, Urine NEGATIVE (NEGATIVE); Opiate Scree,Urine POSITIVE (NEGATIVE); Phencyclidine Screen, Urine NEGATIVE (NEGATIVE)
[2021-12-15 11:05] LABS: Cannabinoid Screen, Urine NEGATIVE (NEGATIVE)
[2021-12-15 12:44] LABS: Cholesterol 182 mg/dL (< 200); HDL Cholesterol 30 mg/dL (40-59); LDL Cholesterol 120 mg/dL (< 100); Triglycerides 219 mg/dL (< 150)
[2021-12-15 13:00] VITALS: BP 116/65
[2021-12-15 17:01] VITALS: BP 116/75
[2021-12-15 20:00] VITALS: BP 123/70
[2021-12-15 22:00] VITALS: BP 123/70
[2021-12-15] MEDS: TEMAZEPAM 15 MG CAP PO PRN (22:25)
[2021-12-15] MEDS: ATORVASTATIN 20 MG TAB PO SCH (22:25)
[2021-12-16] VITALS (8 sets, daily range): BP systolic 114–155; BP diastolic 68–85
[2021-12-16] MEDS: GABAPENTIN 300 MG CAP PO SCH ×3 (05:46→14:30)
[2021-12-16] MEDS: KETOROLAC TROMETH 30 MG/ML 1ML VIAL IV PRN ×2 (05:47→14:32)
[2021-12-16] MEDS: ASPirin 81 mg TAB PO SCH (09:16)
[2021-12-16] MEDS: LISINOPRIL 10 MG TAB PO SCH (09:17)
[2021-12-16] MEDS: PANTOPRAZOLE 40 MG TAB PO SCH (09:17)
[2021-12-16] MEDS: ENOXAPARIN SOD 40 MG/0.4 ML SYRINGE SC SCH (09:17)
[2021-12-16] MEDS: HYDROcodone-ACET 5/325MG TAB PO PRN ×2 (09:17→20:30)
[2021-12-16] MEDS ORDERED: ATORVASTATIN 20 MG TAB PO ONE (10:15)
[2021-12-16] MEDS: TEMAZEPAM 15 MG CAP PO PRN (21:00)
[2021-12-17 05:00] VITALS: BP 107/70
[2021-12-17] MEDS: GABAPENTIN 300 MG CAP PO SCH ×3 (05:38→23:08)
[2021-12-17 09:00] VITALS: BP 154/94
[2021-12-17] MEDS: ASPirin 81 mg TAB PO SCH (09:50)
[2021-12-17] MEDS: LISINOPRIL 10 MG TAB PO SCH (09:50)
[2021-12-17] MEDS: PANTOPRAZOLE 40 MG TAB PO SCH (09:50)
[2021-12-17] MEDS: HYDROcodone-ACET 5/325MG TAB PO PRN (09:51)
[2021-12-17] MEDS: ENOXAPARIN SOD 40 MG/0.4 ML SYRINGE SC SCH (09:51)
[2021-12-17 13:00] VITALS: BP 145/91
[2021-12-17] MEDS: KETOROLAC TROMETH 30 MG/ML 1ML VIAL IV PRN ×2 (16:29→23:09)
[2021-12-17 17:00] VITALS: BP 147/80
[2021-12-17 20:00] VITALS: BP 130/73
[2021-12-17 22:00] VITALS: BP 130/73
[2021-12-17] MEDS: ATORVASTATIN 20 MG TAB PO SCH (23:07)
[2021-12-18 05:00] VITALS: BP 133/70
[2021-12-18] MEDS: HYDROcodone-ACET 5/325MG TAB PO PRN ×4 (06:07→07:14)
[2021-12-18] MEDS: GABAPENTIN 300 MG CAP PO SCH ×3 (07:13→21:05)
[2021-12-18] MEDS ORDERED: LISI20TA28 PO (09:31)
[2021-12-18] MEDS ORDERED: ASPI-498 OR (09:31)
[2021-12-18] MEDS ORDERED: ATO40T PO (09:31)
[2021-12-18] MEDS ORDERED: INDOMETHACIN 25 MG CAP PO ONE (10:00)
[2021-12-18] MEDS: PANTOPRAZOLE 40 MG TAB PO SCH (11:12)
[2021-12-18] MEDS: ASPirin 81 mg TAB PO SCH (11:13)
[2021-12-18] MEDS: LISINOPRIL 10 MG TAB PO SCH (11:14)
[2021-12-18] MEDS: ENOXAPARIN SOD 40 MG/0.4 ML SYRINGE SC SCH (11:15)
[2021-12-18] MEDS: KETOROLAC TROMETH 30 MG/ML 1ML VIAL IV PRN ×2 (13:30→21:04)
[2021-12-18 17:24] VITALS: BP 128/70
[2021-12-18 20:00] VITALS: BP 134/89
[2021-12-18] MEDS: ATORVASTATIN 20 MG TAB PO SCH (21:05)
[2021-12-18] MEDS: TEMAZEPAM 15 MG CAP PO PRN (21:20)
[2021-12-18 22:00] VITALS: BP 137/68
[2021-12-19] MEDS: KETOROLAC TROMETH 30 MG/ML 1ML VIAL IV PRN (03:35)
[2021-12-19] MEDS: HYDROcodone-ACET 5/325MG TAB PO PRN (03:37)
[2021-12-19 05:00] VITALS: BP 123/81
[2021-12-19] MEDS: GABAPENTIN 300 MG CAP PO SCH (05:03)
[2021-12-19 08:00] VITALS: BP 120/70
[2021-12-19 09:30] VITALS: BP 116/82
[2021-12-19] MEDS: ENOXAPARIN SOD 40 MG/0.4 ML SYRINGE SC SCH (09:40)
[2021-12-19] MEDS: ASPirin 81 mg TAB PO SCH (09:40)
[2021-12-19] MEDS: PANTOPRAZOLE 40 MG TAB PO SCH (09:40)
[2021-12-19] MEDS: LISINOPRIL 10 MG TAB PO SCH (09:41)
[2021-12-19 09:58] LABS: Folate (Folic Acid) 9.57 ng/mL (5.38-24)
== END 2021-12-19 12:00 | disposition home or self-care (01) | DRG 47 ==
LOC: ER 16:40 → OVERFLOW 22:05 → CENTRAL 12-14 00:16
PROVIDERS: ADMIT Nurse Practitioner; ATTEND Family Medicine
DX: G45.9 Transient cerebral ischemic attack, unspecified (principal); E66.01 Morbid (severe) obesity due to excess calories; E78.00 Pure hypercholesterolemia, unspecified; G62.9 Polyneuropathy, unspecified; M54.12 Radiculopathy, cervical region; G47.10 Hypersomnia, unspecified; N18.9 Chronic kidney disease, unspecified; M10.9 Gout, unspecified; F12.10 Cannabis abuse, uncomplicated; Z20.822 Contact with and (suspected) exposure to COVID-19; R53.1 Weakness; I12.9 Hypertensive chronic kidney disease with stage 1 through stage 4 chronic kidney disease, or unspecified chronic kidney disease; Z68.42 Body mass index [BMI] 45.0-49.9, adult; Z71.51 Drug abuse counseling and surveillance of drug abuser; Z79.82 Long term (current) use of aspirin; Z79.899 Other long term (current) drug therapy; Z80.42 Family history of malignant neoplasm of prostate; Z82.49 Family history of ischemic heart disease and other diseases of the circulatory system; Z83.3 Family history of diabetes mellitus; Z89.429 Acquired absence of other toe(s), unspecified side
CPT/HCPCS: 36415; 70450; 70551; 71045; 72125; 80048; 80053; 80061; 80307; 81001; 82607; 82746; 83036; 84155; 84165; 84443; 84484; 85025; 87426; 93005; 93306; 93886; G0378; J1885